=== PATIENT | female | born 1960 ===

== ENCOUNTER → 2018-03-21 | Outpatient (CLI) | payer BC, OTHER ==
[~2018-03-21] MED LIST: DULA0.75 SQ-INSULIN; FARXIGA PO; INSU100I32 SQ
[2018-03-21 13:45] LABS: ALANINE AMINOTRANSFERASE 23 U/L (12-78); ALBUMIN 2.7 g/dL (3.4-5.0); ANION GAP 5 mmol/L (5-15); CALCIUM 8.6 mg/dL (8.5-10.1); CHLORIDE 116 mmol/L (98-107); CREATININE 1.27 mg/dL (0.55-1.02)
[2018-03-21 13:46] LABS: ALKALINE PHOSPHATASE 131 U/L (45-117); BILIRUBIN,TOTAL 0.2 mg/dL (0.2-1.0); TOTAL PROTEIN 7.1 g/dL (6.4-8.2)
== END | disposition home or self-care (01) ==
LOC: STAR 12:35
PROVIDERS: ATTEND Orthopaedic Surgery
DX: Z01.818 Encounter for other preprocedural examination (principal); M75.41 Impingement syndrome of right shoulder; M25.511 Pain in right shoulder
CPT/HCPCS: 36415; 80053; 93005

== ENCOUNTER → 2018-04-02 | Outpatient (CLI) | payer BC ==
[~2018-04-02] MED LIST changes: +ALPRazolam 1MG TABLET ONE; +GADOBUTROL 10 MMOL/10 ML PFS ONE
== END | disposition home or self-care (01) ==
LOC: RAD 11:04
PROVIDERS: ATTEND Otolaryngology
DX: M53.0 Cervicocranial syndrome (principal)
CPT/HCPCS: 72156; A9585

== ENCOUNTER 2018-04-03 07:48 | Day surgery (SDC) | payer BC ==
[~2018-04-03] VITALS: Ht 162.6 cm; Wt 88.7 kg
[~2018-04-03 07:48] MED LIST changes: -ALPRazolam 1MG TABLET ONE; -GADOBUTROL 10 MMOL/10 ML PFS ONE
[2018-04-03 08:29] VITALS: BP 139/77
[2018-04-03] MEDS ORDERED: FENTANYL PF 250 MCG/5ML ONE (09:11)
[2018-04-03] MEDS ORDERED: MIDAZOLAM 1 MG/ML, 2ML ONE (09:11)
[2018-04-03] MEDS ORDERED: BUPIVACAINE/PF-EPI 0.25% 1:200K ONE (09:24)
[2018-04-03] MEDS ORDERED: DEXAMETHASONE 4 MG/ML, 1ML ONE (09:37)
[2018-04-03] MEDS ORDERED: PROPOFOL 10 MG/ML, 20ML ONE (09:37)
[2018-04-03] MEDS ORDERED: ONDANSETRON 2MG/ML, 2ML ONE (09:37)
[2018-04-03] MEDS ORDERED: CEFAZOLIN 1,000 MG ONE (09:37)
[2018-04-03] MEDS ORDERED: SUCCINYLCHOLINE 20 MG/ML, 10ML ONE (09:37)
[2018-04-03] MEDS ORDERED: LACTATED RINGERS 1,000 ML IV SCH (10:00)
[2018-04-03] MEDS ORDERED: ACETAMINOPHEN 650 MG/20.3 ML UDC ONE (11:06)
[2018-04-03] MEDS ORDERED: OXYcodone 5 MG/5 ML ORAL.SOL UDC ONE (11:06)
[2018-04-03] MEDS ORDERED: FENTANYL PF 100 MCG/2ML ONE (11:06)
[2018-04-03] MEDS ORDERED: ACETAMINOPHEN 325 MG TABLET ONE (11:07)
[2018-04-03] MEDS: FENTANYL PF 100 MCG/2ML IV PRN ×4 (11:10→11:50)
[2018-04-03] MEDS ORDERED: LORazepam 2 MG/ML, 1ML IVPush PRN (11:30)
[2018-04-03] MEDS ORDERED: ACETAMINOPHEN 325 MG TABLET PO PRN (11:30)
[2018-04-03] MEDS ORDERED: OXYcodone 5 MG/5 ML ORAL.SOL UDC PO PRN (11:30)
[2018-04-03] MEDS ORDERED: ONDANSETRON 2MG/ML, 2ML IV PRN (11:30)
[2018-04-03] MEDS ORDERED: hydrALAzine 20 MG/ML, 1ML IV PRN (11:30)
[2018-04-03] MEDS ORDERED: PROMETHAZINE 25 MG/ML, 1ML IV PRN (11:30)
[2018-04-03] MEDS ORDERED: ALBUTEROL SULFATE 2.5 MG/3 ML NPPB PRN (11:30)
[2018-04-03] MEDS ORDERED: LABETALOL 5MG/ML, 20ML IV PRN (11:30)
[2018-04-03] MEDS ORDERED: HYDROmorphone 1 MG/ML, 1ML IV PRN (11:30)
== END 2018-04-03 14:15 | disposition home or self-care (01) ==
LOC: OUT 07:48
PROVIDERS: ATTEND Orthopaedic Surgery
DX: S43.431A Superior glenoid labrum lesion of right shoulder, initial encounter (principal); S46.111A Strain of muscle, fascia and tendon of long head of biceps, right arm, initial encounter; M75.111 Incomplete rotator cuff tear or rupture of right shoulder, not specified as traumatic; M75.41 Impingement syndrome of right shoulder; M19.011 Primary osteoarthritis, right shoulder; E11.9 Type 2 diabetes mellitus without complications; F32.9 Major depressive disorder, single episode, unspecified; K21.9 Gastro-esophageal reflux disease without esophagitis; X58.XXXA Exposure to other specified factors, initial encounter; Y93.89 Activity, other specified; Y92.89 Other specified places as the place of occurrence of the external cause; Y99.8 Other external cause status; Z87.891 Personal history of nicotine dependence; Z72.89 Other problems related to lifestyle; Z79.899 Other long term (current) drug therapy
CPT/HCPCS: 29823; 29824; 29826; 64415; 82962; J0330; J0690; J1100; J2250; J2405; J2704; J3010; J7120

== ENCOUNTER → 2018-05-18 | Outpatient (CLI) | payer BC | END | disposition home or self-care (01) | LOC: RAD 09:55 | PROVIDERS: ATTEND Otolaryngology | DX: Z02.9 Encounter for administrative examinations, unspecified (principal) ==

== ENCOUNTER → 2018-05-18 | Outpatient (CLI) | payer BC ==
[~2018-05-18] MED LIST changes: +GADOBUTROL 10 MMOL/10 ML PFS IV ONE; +GADOBUTROL 10 MMOL/10 ML PFS ONE
== END | disposition home or self-care (01) ==
LOC: RAD 05-16 10:42
PROVIDERS: ATTEND Otolaryngology
DX: I67.82 Cerebral ischemia (principal); R51 Headache; R42 Dizziness and giddiness
CPT/HCPCS: 70553; A9585